=== PATIENT | male | born 1975 | race Caucasian/White ===

== ENCOUNTER → 2025-08-29 14:05 | Outpatient (REF) | payer OTHER, SELFPAY | LOC: MRI 14:05 | PROVIDERS: ATTENDING PHYSICIAN Internal Medicine Transplant Hepatology; FAMILY PHYSICIAN Family Medicine | DX: K75.81 Nonalcoholic steatohepatitis (NASH) (principal) | CPT/HCPCS: 74183; 76391; A9575 ==